=== PATIENT | female | born 1985 ===

== ENCOUNTER 2022-11-01 14:30 | Emergency (ER) | payer OTHER, SELFPAY ==
[2022-11-01 14:32] VITALS: BP 135/106; PULSE 94; RESP 18; TEMP 36.6; O2SAT 98; BMI 25.0
--- NOTE | 2022-11-01 14:32 | ED_ITS ---
HPI - General Adult General Chief complaint: Wound/Laceration Stated complaint: R hand finger bleeding Time Seen by Provider: 11/01/22 17:48 Source: patient, RN notes reviewed and old records reviewed Mode of arrival: ambulatory Limitations: no limitations History of Present Illness HPI narrative: 37-year-old female presents for evaluation of bleeding from a lesion on her right 5th finger. She reports that she has developed ?a bubble to my right 5th finger tip that started about 1 month ago For the last 3 days it has been bleeding on and off She does not have a primary doctor Denies any trauma to the area She has no other complaints or concerns Patient denies any history of bleeding disorder Related Data Allergies Allergy/AdvReac Type Severity Reaction Status Date / Time No Known Allergies Allergy Verified 11/01/22 14:32 Review of Systems Constitutional: Constitutional: Denies chills and Denies fever(s) Integumentary/Breasts: Skin/Breast: Reports non-healing lesions PMFSH Social History Social History Advance Directives: No Physical Exam ED Vital Signs: Vital Signs - 24 hr 11/01/22 14:32 Temperature 98 F Pulse Rate 94 Respiratory Rate 18 Blood Pressure 135/106 H Pulse Oximetry 98 Oxygen Delivery Method Room Air BMI result Body Mass Index 25.0 Const General: healthy appearing, comfortable, no acute distress, alert and awake Nutritional Appearance: well nourished Orientation/consciousness: patient oriented x3 HENMT Head: Yes normocephalic and Yes atraumatic Eyes Eyelids: Yes eyelids normal Conjunctivae: conjunctivae normal Sclerae: sclerae normal Corneas: corneas normal Pupils: Equal, round and reactive pupils present EOM: EOMs intact bilaterally Neck Neck: Yes full ROM Resp Effort & Inspection: normal respiratory effort, able to speak in complete sentences and not labored Skin Other: Patient has about a 1 cm round, raised lesion to the right 5th finger pad. This lesion is well-demarcated. It is erythematous, minimal oozing from the center of the lesion. General skin exam: elasticity normal Neuro General: patient oriented x3 Cranial nerves: Yes Equal, round and reactive pupils present and Yes Bilaterally intact EOM present Cognition (Neuro): normal cognition Extrem Other: Moving all extremities well without any obvious deformities Course Course Course Narrative: This is an RME: Additional HPI, ROS, PE not included below will be deferred to primary provider. This is a 59-roht-due-female presenting to the emergency department with a complaint of right finger bleeding x 3 days. Pt states that she is unsure what caused her to cut her finger, but states that the bleeding has not stopped. She refuses to take off bandage in triage, but showed video of small laceration that is bleeding. Does not appear that it needs to be sutured, potentially cauterized. VSS. Medications Administered Discontinued Medications Generic Name Dose Route Start Last Admin Trade Name Rick PRN Reason Stop Dose Admin Lidocaine/Epinephrine 10 ml 11/01/22 18:12 11/01/22 18:16 Lidocaine Hcl 1%/Epi 1:100,000 10 Ml Vial INFILTRATI 11/01/22 18:13 10 ml ONCE ONE Administration Medical Decision Making Medical Decision Making MDM Narrative: 37-year-old female presents for evaluation of a lesion that is bleeding to the right 5th finger pad. On exam the lesion appears concerning for will see such as basal cell carcinoma or squamous cell carcinoma. I was able to achieve hemostasis by injecting a small amount of lidocaine with epinephrine around the lesion. The wound was then wrapped with Surgicel. Unfortunately we do not have dermatology to for the patient to at this facility. I did provide the patient with to private dermatology office is that she will see if she can see them. I did discuss with our general surgeon, Dr. daniels who will be able to see the patient if she cannot get in to see Dermatology for likely biopsy Differential Diagnosis Differential Diagnoses: The differential diagnosis associated with the presentation includes Squamous cell carcinoma Basal cell carcinoma Finger lesion Pyogenic granuloma Discharge Plan Discharge Clinical Impression: Finger lesion Patient Disposition: Home, Self-Care Additional Instructions: You need to have a biopsy to figure out what the lesion on your finger is. I am concerned that it may be squamous cell carcinoma or basal cell carcinoma Therefore you should have follow-up within the next week or so You may follow-up with these outpatient dermatology offices If they are unwilling to see you follow-up with our general surgery office. Dr. Valera has agreed to see you if you are unable to get in with dermatology. Keep the dressing in place for at least the next 24 hours [facility] [address], [place] [address] [facility] [address] [facility] [address] [place], [place] [id number] Referrals: Pérez Valera MD [Physician] - (? squamous cell carcinoma of right 5th finger) Interventions: ED Discharge Assessment Last Done: 11/01/22 18:52 Discharge Date/Time: 11/01/22 18:52
--- NOTE | 2022-11-01 17:41 | PC.NURSE ---
Addendum entered by Lavinia Day 11/01/22 17:42: bleeding under control at this time Original Note: pt has bubble like wound on left pinky finger. every time she tried to clean it, it bleeds uncontrollably
[2022-11-01] MEDS: Lidocaine HCl 1%/Epi 1:100,000 10 ML VIAL INFILTRATI (18:16)
== END 2022-11-01 18:52 | disposition home or self-care (01) ==
PROVIDERS: Emergency Provider Student in an Organized Health Care Education/Training Program
DX: L98.8 Other specified disorders of the skin and subcutaneous tissue (principal)
CPT/HCPCS: 99283; 99284